=== PATIENT | female | born 1950 | race Caucasian/White ===

== ENCOUNTER 2016-11-25 17:51 | Inpatient (IN) | payer SELFPAY | END 2016-12-01 22:15 | disposition E | DRG 70 | DX: G93.41 Metabolic encephalopathy (principal); E43 Unspecified severe protein-calorie malnutrition; N17.9 Acute kidney failure, unspecified; Z51.5 Encounter for palliative care; L89.323 Pressure ulcer of left buttock, stage 3; I95.9 Hypotension, unspecified; R13.10 Dysphagia, unspecified; E83.39 Other disorders of phosphorus metabolism; Z68.1 Body mass index [BMI] 19.9 or less, adult; I10 Essential (primary) hypertension; R62.7 Adult failure to thrive; F10.10 Alcohol abuse, uncomplicated; E86.0 Dehydration; R79.89 Other specified abnormal findings of blood chemistry; R21 Rash and other nonspecific skin eruption; J44.9 Chronic obstructive pulmonary disease, unspecified; R32 Unspecified urinary incontinence; E87.6 Hypokalemia; Z87.891 Personal history of nicotine dependence; Z66 Do not resuscitate ==